=== PATIENT | male | born 1980 | race Caucasian/White ===

== ENCOUNTER → 2018-10-23 11:23 | Outpatient (CLI) | payer OTHER, SELFPAY ==
[2018-10-23 14:40] LABS: Homocysteine 6.8 umol/L (3.2-10.7)
[2018-10-23 14:54] LABS: Hemoglobin 15.5 g/dL (13.0-16.5); Mean Corp Hgb Conc 33.7 g/dL (32-36); Mean Corpuscular Hgb 29.4 pg (27.0-32.0); Mean Corpuscular Volume 87.3 fL (80-94); Mean Platelet Vol. 10.8 fl (6.2-12.0); Platelet Count 236 K/mm3 (150-450); RBC Distribution Width CV 12.1 % (11.6-14.6); RBC Distribution Width SD 39.2 fl (35.1-43.9); Red Blood Count 5.27 M/mm3 (4.6-6.2); White Blood Count 6.8 K/mm3 (4.4-11.0)
[2018-10-23 15:30] LABS: Vitamin B12 529 pg/mL (211-911)
[2018-10-23 15:49] LABS: AST(SGOT) 14 U/L (15-37); Alanine Aminotransfer ALT/SGPT 20 U/L (16-61); Albumin, Serum 3.8 g/dL (3.2-5.0); Alkaline Phosphatase 68 U/L (45-117); Anion Gap 6 (5-15); BUN 14 mg/dL (7-18); CRP, High Sensitivity Cardiac 0.53 mg/L; Chloride 107 mmol/L (98-107); Cholesterol 262 mg/dL (200); Creatinine, Serum 1.08 mg/dL (0.70-1.30); EST Glomerular Filtration Rate 81 mL/min (>60); Est Glom Filt Rate - Afr Amer 97 mL/min (>60); Estradiol 22.2 pg/mL; Follicle Stimulating Hormone 2.5 mIU/mL; Free T3 3.9 pg/mL (2.18-3.98); Globulin 3.9 g/dL (2.2-4.2); Glucose 89 mg/dL (74-106); High Density Lipoprotein 50 mg/dL; Iron 99 ug/dL (65-175); Luteinizing Hormone 2.2 mIU/mL; Magnesium 2.3 mg/dL (1.6-2.6); PSA,Total - Annual Screen 0.39 ng/mL (0.00-4.00); Potassium 3.5 mmol/L (3.5-5.1); Prolactin 8.1 ng/mL; Protein, Total 7.7 g/dL (6.4-8.2); Sodium Level 139 mmol/L (136-145); T4 Free Direct 1.47 ng/dL (0.76-1.46); T4 Total, Thyroxin 13.2 ug/dL (4.5-12.1); Thyroid Stim Hormone (TSH) 3.46 uIU/mL (0.358-3.74); Triglycerides 132 mg/dL; Very Low Density Lipoprotein 26 mg/dL (5-40)
[2018-10-27 12:07] LABS: DHEA Sulfate 224.5 ug/dL (102.6-416.3); Insulin Like Growth Factor 239 ng/mL (83-233); Testosterone, % Free 2.06 % (1.50-4.20); Testosterone, Free 8.92 ng/dL (5.00-21.00)
[2018-10-28 09:59] LABS: Sex Hormone-binding Globulin 52.3 nmol/L (16.5-55.9); Testosterone, Total 433 ng/dL (264-916)
== END ==
DX: R53.82 Chronic fatigue, unspecified (principal); M62.81 Muscle weakness (generalized); R68.82 Decreased libido
CPT/HCPCS: 36415; 80053; 80061; 82306; 82533; 82607; 82627; 82670; 82746; 83001; 83002; 83036; 83090; 83540; 83735; 84144; 84146; 84153; 84270; 84305; 84402; 84403; 84436; 84439; 84443; 84481; 85027; 86141; 82626; G0103